=== PATIENT | female | born 1940 | race Caucasian/White ===

== ENCOUNTER 2020-05-17 09:45 | Outpatient (CLI) | payer MEDICARE, SELFPAY ==
--- NOTE | 2020-05-17 10:19 | ECG_ITS ---
Measurements Intervals [place] Rate: 53 P: 78 RI: 165 QRS: 49 QRSD: 90 T: 48 QT: 431 QTc: 408 Interpretive Statements SINUS BRADYCARDIA POSSIBLE LEFT ATRIAL ENLARGEMENT INCOMPLETE RIGHT BUNDLE BRANCH BLOCK BORDERLINE ECG Electronically Signed On 05-17-2020 10:54:28 CDT by Calvin Robbins D.O.
[2020-05-17 10:43] LABS: Basophils Percent Auto 0.6 % (0.2-1.2); Eosinophils Absolute Auto 0.4 K/mm3 (0-0.3); Eosinophils Percent Auto 5.5 % (0-4.4); Hematocrit 38.4 % (37.0-47.0); Hemoglobin 12.3 g/dL (12.0-15.0); Immature Granulocyte Absolute 0.01 K/mm3 (0.00-0.031); Immature Granulocyte Percent A 0.1 % (0-0.5); Lymphocytes Absolute Auto 2.47 K/mm3 (0.9-3.2); Lymphocytes Percent Auto 35.6 % (18.3-44.2); Mean Corpuscular Hemoglobin 30.4 pg (26-34); Mean Platelet Volume 11.8 fl (7.4-10.4); Monocytes Absolute Auto 0.8 K/mm3 (0.1-0.6); Neutrophils Absolute Auto 3.3 K/mm3 (1.3-6.7); Neutrophils Percent Auto 47.2 % (45.5-73.1); Platelet Count Result 242 k/mm3 (150-375); Red Blood Count 4.04 M/mm3 (4.2-5.4); Red Cell Distribution Width 14.6 % (11.5-14.5); White Blood Count 6.9 K/mm3 (4.5-10.0)
[2020-05-17 10:55] LABS: Alanine Aminotransferase 20 U/L (4-35); Albumin Level 4.1 g/dL (3.5-5.1); Alkaline Phosphatase 89 U/L (38-126); Anion Gap 7 mmol/L (8-16); Aspartate Amino Transferase 40 U/L (14-36); Bilirubin,Total 1.1 mg/dL (0.2-1.3); Blood Urea Nitrogen 22 mg/dL (7-17); Calcium 10.6 mg/dL (8.4-10.2); Carbon Dioxide 29 mmol/L (22-30); Chloride 105 mmol/L (98-107); Estimated Glomerular Filt Rate 53; Glucose 88 mg/dL (65-105); Potassium 4.7 mmol/L (3.4-5.0); Sodium 141 mmol/L (137-145)
== END 2020-05-17 09:46 | disposition home or self-care (01) ==
PROVIDERS: Visit Provider Urology
DX: N81.4 Uterovaginal prolapse, unspecified (principal); R32 Unspecified urinary incontinence; Z01.818 Encounter for other preprocedural examination; I45.10 Unspecified right bundle-branch block
CPT/HCPCS: 36415; 80053; 85025; 87086; 87088; 93005

== ENCOUNTER 2020-05-27 02:36 | Outpatient (CLI) | payer MEDICARE, SELFPAY ==
[2020-05-27 18:16] LABS: SARS-CoV-2 RNA PCR Negative
== END 2020-05-27 02:37 | disposition home or self-care (01) ==
LOC: ANHCOVIDDT 02:37
PROVIDERS: Visit Provider Urology
DX: Z01.812 Encounter for preprocedural laboratory examination (principal); Z20.828 Contact with and (suspected) exposure to other viral communicable diseases
CPT/HCPCS: 87635; C9803; U0003

== ENCOUNTER 2020-05-30 00:11 | Day surgery (SDC) | payer MEDICARE, SELFPAY ==
[2020-05-14 13:43] VITALS: BMI 20.4
--- NOTE | 2020-05-24 11:18 | PM.IMHP ---
H&P: HPI History of Present Illness Date/Time: 05/24/20 11:18 Chief complaint: Uterine Prolapse/Stress Incontinence Narrative: Ashia Cody is a 80 year old female with uterine prolapse and DEDE Review of Systems Review of Systems: All systems reviewed & are unremarkable except as noted in HPI and below [facility] Social History Social History Smoking status: Never smoker Alcohol intake: never Substance use: never Spiritual care concerns: No Meds Home Medications and Allergies Home Medications Medication Instructions Recorded Confirmed Type diphenhydramine HCl [Benadryl 25 mg PO HS PRN 05/14/20 05/14/20 History Allergy] levothyroxine 100 mcg DAILY 05/14/20 05/14/20 History Exam Const: General: no acute distress HENMT: Mouth: Yes moist mucous membranes Eyes: EOM: EOMs intact bilaterally Neck: Lymphatic: lymphadenopathy not noted Resp: Effort & Inspection: normal respiratory effort GI: GI Palp: Yes Soft to palpation : Other: apex at +5 Skin: General skin exam: normal color Extrem: General: normal to inspection Psych: Mental Status: mental status grossly normal Assessment and Plan Assessment and plan (1) Uterine prolapse: Code(s): N81.4 - Uterovaginal prolapse, unspecified Status: Acute Assessment and Plan: [place] Colpocleisis (2) DEDE (stress urinary incontinence, female): Code(s): N39.3 - Stress incontinence (female) (male) Status: Acute Assessment and Plan: urethral sling
--- NOTE | 2020-05-29 10:49 | WPDANESEPPF ---
Anes - Initial Pre Proc Eval Procedure: Operation Date: 05/30/20 09:00 Proposed Procedures p Colpocleisis - Kyle Shahid MD s Urethral Sling - Kyle Shahid MD Date/Time: 05/29/20 10:49 Surgeon: Kyle Shahid MD Pre Op Diagnosis: Uterine Prolapse/Stress Incontinence Patient Data Age: 80 Gender: F Height: 1.63 m Weight: 54 kg Allergies Allergy/AdvReac Type Severity Reaction Status Date / Time Penicillins Allergy Unknown Unknown Verified 05/30/20 07:13 Sulfa (Sulfonamide AdvReac Intermediate Nausea and Verified 05/30/20 07:13 Antibiotics) Vomiting Home Medications Medication Instructions Recorded Confirmed Type diphenhydramine HCl [Benadryl 25 mg PO HS PRN 05/14/20 05/30/20 History Allergy] levothyroxine 100 mcg DAILY 05/14/20 05/30/20 History Patient hx anesthesia problems: none Family hx anesthesia problems: none [facility] Past Medical History Medical History (Updated 05/29/20 @ 10:49 by Terrance Infante DO) Hypothyroidism Osteoarthritis Social History Social History Smoking status: Never smoker Alcohol intake: never Substance use: never Living arrangements: with family Spiritual care concerns: No Anes - Eval Final PreProcedure Day of Procedure 05/29/20 10:49 Patient weight: normal Heart: regular rate and rhythm Lungs: clear to auscultation and normal air movement Airway: Mallampati scale class II Neurological: alert and oriented Last oral intake: >/= 8 hours ASA classification: II Emergent: no Anesthetic plan: proceed Anesthesia type and monitoring: general LMA and standard monitoring Informed Consent: The patient's anesthetic plan and its attendant risks and benefits were discussed with the patient/family/POA. Questions were solicited and answers provided to the satisfaction of the patient/family/POA.
[2020-05-30] VITALS (8 sets, daily range): BP systolic 103–144; BP diastolic 58–83; PULSE 69–77; RESP 12–22; TEMP 36.1–37.6; O2SAT 99–100
--- NOTE | 2020-05-30 07:25 | WPDHPUPDATE1 ---
History and Physical Update Update Date/Time: 05/30/20 07:25 History and Physical has been reviewed, including an updated exam of the patient. There are NO changes in the patient's condition. Risks, benefits, and alternatives have been discussed and questions answered. Patient agrees to proceed with procedure.
[2020-05-30] MEDS: LACTATED RINGERS 1,000 ML 30 ML IV CONT ×2 (07:51→10:02)
[2020-05-30 07:59] LABS: INR 1.1; Prothrombin Time 13.6 Seconds (11.1-14.7)
[2020-05-30 08:00] LABS: Partial Thromboplastin Time 26.1 SECONDS (22.3-36.8)
[2020-05-30] MEDS: levoFLOXacin 500 MG/D5W 100 ML 500 MG/100 ML BAG 100 MG IVPB (08:34)
[2020-05-30] MEDS: BUPIVACAINE/EPINEPHRINE 0.25% 50 ML VIAL INFILTRATE (09:06)
--- NOTE | 2020-05-30 10:31 | PM.PROC ---
Procedure Note - Detailed Date of procedure: 05/30/20 Pre-op diagnosis: Uterine Prolapse/Stress Incontinence Uterine prolapse Female perineal laxity Stress urinary incontinence Post-op diagnosis: same Procedure performed: Left [place] colpocleisis perineoplasty Mid urethral sling Description of procedure: Anesthesia: General She understands the risks of bleeding, infection, damage to surrounding organs, injury to the bowels, damage to the urinary tract, postoperative voiding dysfunction including incontinence and retention, inability to have penetrative intercourse. She agrees to proceed She was correctly identified and informed consent obtained. She is by the operating room. She was given general anesthesia. She was placed in the dorsal lithotomy position. She was prepped and draped in a sterile fashion. She was given appropriate perioperative antibiotics. Time-out performed. Of note she had atrophic vaginitis. The [place] retractors placed. A Malik catheter was placed. I judy out 2 rectangular shaped areas on the anterior and posterior vaginal wall. I then tied the posterior vaginal wall. I removed the area of mucosa off the posterior vaginal wall. I then repeated this on the anterior vaginal wall. I took great care not to injure the underlying structures. I then performed a [place] colpocleisis. I left a drainage tunnels at the 3 and 9 o'clock position. I imbricated reduce the prolapse with 0 Vicryl sutures. I then closed the mucosa to mucosa with interrupted 0 Vicryl suture. There was excellent support of the prolapse. I then turned my attention towards the sling. I marked out the thigh incisions anesthetize the skin and made those incisions. I anesthetized the anterior vaginal the mid urethra. I made a 1 cm incision. I dissected out laterally taking great care not to injure the refill vaginal wall. I passed the helical trocars. First on the left. Then on the right. From the thigh incision towards the vaginal incision. Sling was connected to the trocars and was brought out the thigh incision. I tensioned appropriately. I cut and the plastic sheaths. I then closed the incision with 2 0 Vicryl. I then performed cystoscopy. The bladder was examined. There is no surgical artifact. There was no bladder tumors. Ureteral orifices were normal. The ureteral orifices were seen to excrete clear yellow urine. A guidewire was placed up both ureter to document patency. She had significant trabeculation. I then turned my attention towards the perineum. There is significant perineal laxity. I judy out a luigi-shaped area of skin on the perineum. I removed this area skin after anesthetizing it. I then performed a perineoplasty with serial 0 Vicryl sutures. I then used a 2 Vicryl to close the mucosa leading to excellent perineal support. I assured hemostasis. I cut the excess sling material and close those incisions with glue. The patient is awakened and transferred to the PACU in stable condition. Implants: None Anesthesia: GETA Surgeon: Kyle Shahid MD Drains: No Packing: No Pathology: none sent Complications: No immediate complications Condition: stable Disposition: PACU
--- NOTE | 2020-05-30 12:04 | SUR.PHASEII ---
SMALL AMOUNT OF RECTAL BLEEDING.
== END 2020-05-30 11:55 | disposition home or self-care (01) ==
PROVIDERS: Visit Provider Urology
PROC: (CPT 57120; principal; 2020-05-30 09:00)
PROC: (CPT 57288; 2020-05-30 09:00)
DX: N81.4 Uterovaginal prolapse, unspecified (principal); N39.3 Stress incontinence (female) (male)
CPT/HCPCS: 57288; 57120; 36415; 85610; 85730; 86850; 86900; 86901; A9270; C1758; C1769; C1771; J1956; J2405; J2704; J3010; J7030; J7120; Q9968